=== PATIENT | male | born 1970 | race Caucasian/White ===

== ENCOUNTER 2017-06-03 08:56 | Day surgery (SDC) | payer BC, OTHER ==
[~2017-06-03 08:56] MED LIST: Midazolam 1 MG/ML 2 ML SDV ONE; Propofol 200 MG/20 ML SDV ONE
[2017-06-03] MEDS ORDERED: Propofol 200 MG/20 ML SDV ONE ×2 (08:57→09:14)
[2017-06-03] MEDS ORDERED: Sodium Chloride 0.9% 1,000 ML IV SCH (09:00)
[2017-06-03] MEDS ORDERED: Sodium Chloride 0.9% 5 ML Syringe FLUSH PRN (09:00)
[2017-06-03] MEDS ORDERED: Midazolam 1 MG/ML 2 ML SDV IV ONE (09:41)
[2017-06-03] MEDS ORDERED: Propofol 200 MG/20 ML SDV IV ONE (09:41)
[2017-06-03] MEDS ORDERED: EPINEPHrine 1:10,000 1 MG/10 ML Syringe ONE ×2 (10:07→10:23)
--- NOTE | 2017-06-03 10:59 | PCM.OPNOTE ---
- General Post-Op/Procedure Note Date of Surgery/Procedure: 06/03/17 Operative Procedure(s): Colonoscopy with multiple polypectomies. Anesthesia Technique: MAC Primary Surgeon: Hadley Hou Complications: None Condition: Good Free Text/Narrative:: INFORMED CONSENT: Patient is here today for elective colonoscopy. All aspects of this procedure have been discussed with the patient. All possible complications also, including possibility of perforation, infection, pain, bleeding and unknown complications. In the event of perforation patient may need to have abdominal exploration, colon resection, colostomy and even was discussed. Anesthetic complications were handled by anesthesia department. The patient understands fully well. Patient did not have any further questions for me at the end of my interview. The patient wishes for me to proceed. PREOPERATIVE DIAGNOSIS/INDICATIONS: [Previous history of colon polyps] POSTOPERATIVE DIAGNOSIS: [Multiple colon polyps, 6 in number] INSTRUMENT USED: Alai videocolonoscope. ASA CLASSIFICATION: [2] ANESTHESIA: Continuous EKG, oximetry and intermittent blood pressure and respiratory monitoring were performed throughout the procedure. IV Versed and Fentanyl were administered. PROCEDURE PERFORMED: Colonoscopy POSITIONS OF PATIENT: Left lateral. RECTUM: Normal. SIGMOID COLON: 2 polyps were identified one at 30 cm and one at 35 cm. The base of these polyps were injected with 1 mL of one is to 10,000 epinephrine and a loop electrocautery was used. Specimens are collected. A resolution clip was placed at the polyp site of 30 cms. DESCENDING COLON: One polyp was identified at 60 cm and removed using a hot biopsy forceps.. SPLENIC FLEXURE: Normal. TRANSVERSE COLON: One polyp was removed at 107 L using the hot biopsy forceps. HEPATIC FLEXURE: One polyp was removed to 75 cm near the hepatic flexure.. ASCENDING COLON: Normal. CECUM: One polyp was removed at the ileocecal junction using injection of one is to 10,000 epinephrine and a loop electrocautery.. ILEOCECAL VALVE: Normal. BIOPSY: None. TOLERANCE: Excellent. COMPLICATIONS: None. Multiple of polyps were removed. 6 in number. Please see op note for further details.
== END 2017-06-03 11:55 | disposition home or self-care (01) ==
LOC: KA.SDS 08:56
PROVIDERS: ATTEND Family Medicine
DX: Z12.11 Encounter for screening for malignant neoplasm of colon (principal); D12.0 Benign neoplasm of cecum; D12.6 Benign neoplasm of colon, unspecified; E11.9 Type 2 diabetes mellitus without complications; Z86.010 Personal history of colon polyps; Z79.84 Long term (current) use of oral hypoglycemic drugs; Z79.899 Other long term (current) drug therapy; Z98.52 Vasectomy status; Z88.8 Allergy status to other drugs, medicaments and biological substances; F17.210 Nicotine dependence, cigarettes, uncomplicated
CPT/HCPCS: 45384; 45388; 82962; J0171; J2250; J2704; J7030

== ENCOUNTER 2024-06-30 08:29 | Day surgery (SDC) | payer BC, OTHER ==
[2024-06-30] MEDS ORDERED: Propofol 200 MG/20 ML SDV IV ONE (08:30)
[2024-06-30] MEDS ORDERED: Sodium Chloride 0.9% 10 ML Syringe FLUSH PRN (08:30)
[2024-06-30] MEDS ORDERED: 50% Dextrose in Water 50 ML Syringe IV ONE (08:30)
[2024-06-30] MEDS: Sodium Chloride 0.9% 1,000 ML IV SCH (08:37)
[2024-06-30] MEDS ORDERED: Midazolam 1 MG/ML 2 ML SDV ONE (08:56)
[2024-06-30] MEDS ORDERED: Propofol 200 MG/20 ML SDV ONE ×2 (08:56→10:15)
[2024-06-30] MEDS ORDERED: Sodium Chloride 0.9% 1,000 ML ONE (10:25)
== END 2024-06-30 12:05 | disposition home or self-care (01) ==
LOC: KA.SDS 08:29
PROVIDERS: ATTEND Family Medicine
DX: Z12.11 Encounter for screening for malignant neoplasm of colon (principal); D12.0 Benign neoplasm of cecum; D12.6 Benign neoplasm of colon, unspecified; K63.5 Polyp of colon; K57.30 Diverticulosis of large intestine without perforation or abscess without bleeding; K64.8 Other hemorrhoids; I10 Essential (primary) hypertension; E78.5 Hyperlipidemia, unspecified; E11.9 Type 2 diabetes mellitus without complications; Z87.891 Personal history of nicotine dependence; Z79.4 Long term (current) use of insulin; Z79.899 Other long term (current) drug therapy
CPT/HCPCS: 00811; 82947; J2250; J2704; J3490; J7030